=== PATIENT | male | born 1950 | race Caucasian/White ===

== ENCOUNTER 2021-08-20 15:26 | Inpatient (IN) ==
[2021-08-20] MEDS ORDERED: ONDANSETRON INJ 2 MG/ML 2 ML VIAL IV STA ×2 (16:03→18:16)
[2021-08-20] MEDS ORDERED: SODIUM CHLORIDE 0.9% 1000ML 1,000 ML IV STA (16:03)
--- NOTE | 2021-08-20 16:05 | Emergency Department Note ---
Impression & Plan GBM (glioblastoma multiforme) ADMIT ED Provider Note HPI: The patient is a 70-year-old gentleman with recent diagnosis of glioblastoma multiforme, presents the emergency department with a chief complaint of generalized weakness, nausea, and diarrhea. Patient's at the bedside serves as the primary historian, she states that he seemed in his normal state of health last night when they went to bed. She states when she woke up she found him on the couch. Patient states he does not remember why he was on the couch. He was incontinent of stool and urine this morning. Also complained of nausea. On arrival here to the ED the patient is alert, he is not oriented to place or time which is happened intermittently over the past several weeks according to his . He appears in mild distress secondary to nausea and generalized weakness. He also did have an episode of vomiting this morning. He did recently have a biopsy of his brain tumor at [facility] in [place], this was performed on 08/10/21. He was originally diagnosed with GBM last month after he was having issues with his memory as well as ataxia. This was diagnosed as an outpatient on MRI imaging and he was sent to [facility] for further care. They were informed during this visit that the tumor is nonoperative. They will be pursuing radiation therapy and have an appointment early this week with hematology/oncology locally. Patient is otherwise hemodynamically stable and alert on arrival here to the ED. He saturating well on room air. ROS: -GI: Nausea and vomiting, incontinent of stool -Neuro: Confusion beyond baseline with history of brain tumor/GBM *10 point review systems was conducted and is otherwise negative unless stated above *Outpatient medications and allergy history reviewed PE: General: Alert to verbal stimuli, mild distress secondary to nausea HEENT: Normocephalic, atraumatic Eyes: Extraocular eye movement is intact, no scleral erythema Pulmonary: Clear to auscultation bilaterally, no wheezing Cardio: Regular rate and rhythm GI: Abdomen is soft, nontender : No suprapubic tenderness MSK: No evidence of trauma or malformation of the extremities, no edema Skin: No evidence of rash Neuro: Alert, no focal deficits, patient is not oriented to time or place Psychiatric: Cooperative monitor technician: - An order was placed for continuous cardiac monitoring - Patient was noted to be in sinus rhythm with rate of 57 EKG: Rate: 55 Rhythm: Sinus bradycardia Intervals: IN interval 204 ms, otherwise within normal limits ST changes: No ST elevation Time: 1609 Medical Decision Making: Patient presented to the emergency department with some altered mentation beyond his baseline, he has had some nausea and vomiting, this is all in the setting of a recently diagnosed glioblastoma multiforme that is determined to be nonoperative following a stay at tertiary care center [facility] about 2 weeks ago. On arrival here to the ED the patient is hemodynamically stable, mild distress secondary to symptoms. IV was established, lab work ordered, patient was given Zofran and IV fluids in the ED for his symptoms. CT imaging of the head shows evidence of large brain mass that appears similar in size to previous CT imaging on 08/10. CT imaging of the abdomen pelvis does not show any evidence of any acute surgical abnormalities. Mildly elevated bilirubin and gallstones on CT imaging therefore I did obtain ultrasound of the right upper quadrant that does not show any evidence of cholecystitis. Lipase is also within normal limits. I discussed the above findings in regards to CT imaging of the head with on-call neurosurgery at [facility] in [place], Dr. Montgomery, who did review CT images of the head and states that at this time there do not appear to be any significant changes from CT imaging on 08/10. He does confirm that the brain mass is considered nonoperable. He states at this time there would be no further neurosurgical care indicated at [facility] and the patient can be managed either at this facility or if he is symptomatically improved enough can go home and follow-up as an outpatient. I discussed these findings with the patient's at the bedside, at this time the patient is still symptomatic, he is still fairly weak, I do believe that the patient's would have difficulty managing his symptoms at home. I discussed this with her and plan will be made for inpatient admission for symptomatic relief and possibly inpatient hospice consultation if indicated. I also discussed CODE STATUS of the patient with his at the bedside, he will be DNR/DNI if his condition decompensates. Case was discussed with the on-call hospitalist for the [facility] hospitalist team, Dr. Diaz, patient will be admitted for further care. CODE STATUS: DNR/DNI, discussed with at the bedside Diagnosis: 1. Brain mass, glioblastoma multiforme 2. Nausea and vomiting 3. Altered mental status Disposition: Admission Ward MattstacieDO Emergency Medicine Past Med/Surg History Social History Smoking Status: Never smoker Feels Safe at Home: Yes Allergies Allergies Allergy/AdvReac Type Severity Reaction Status Date / Time No Known Allergies Allergy Mild Verified 08/20/21 17:19 Home Meds Home Medications Medication Instructions Recorded Confirmed No Known Home Medications 08/20/21 08/20/21 Results & Data (ED) Vital Signs Vital Signs - 24 hr 08/20/21 15:28 08/20/21 15:29 08/20/21 16:03 Temperature 37 C Temperature Source Oral Pulse Rate 54 L 54 L Pulse Rate [Apical] 56 L Pulse Rhythm [Apical] Regular Pulse Strength [Apical] Normal Respiratory Rate 16 18 23 Blood Pressure 167/102 H Blood Pressure [Left Arm] 159/87 H Blood Pressure Mean 123 Blood Pressure Mean [Left Arm] 111 Pulse Oximetry 97 97 95 Oxygen Delivery Method Room Air Room Air Room Air Sepsis Recent Fever Within 48 Hours No Sepsis New/Unexplained Change in Mental Status No Sepsis Action Taken by Nursing No Action Required 08/20/21 17:28 Temperature Temperature Source Pulse Rate Pulse Rate [Apical] 55 L Pulse Rhythm [Apical] Pulse Strength [Apical] Respiratory Rate 18 Blood Pressure Blood Pressure [Left Arm] 126/82 Blood Pressure Mean Blood Pressure Mean [Left Arm] 96 Pulse Oximetry 96 Oxygen Delivery Method Room Air Sepsis Recent Fever Within 48 Hours Sepsis New/Unexplained Change in Mental Status Sepsis Action Taken by Nursing Laboratory Data Result diagrams: 08/20/21 15:50 08/20/21 15:50 Lab Results 08/20/21 08/20/21 08/20/21 Range/Units 15:50 15:50 15:50 WBC 13.18 H (4.8-10.8) K/uL RBC 5.29 (4.7-6.1) M/uL Hgb 17.2 (14.0-18.0) g/dL Hct 47.6 (42-52) % MCV 90.0 (80-100) fL MCH 32.5 (25-34) pg MCHC 36.1 H (32-36) g/dL RDW Std Deviation 41.9 (36.4-46.3) fL RDW Coeff of Cullen 12.8 (11.5-14.5) % Plt Count 103 L (130-400) K/uL MPV 10.6 H (7.4-10.4) fL Immature Gran % (Auto) 0.6 % Neut % (Auto) 80.2 % Lymph % (Auto) 10.1 % [place] % (Auto) 8.8 % Eos % (Auto) 0.2 % Baso % (Auto) 0.1 % Neut # (Auto) 10.58 H (1.4-6.5) K/uL Lymph # (Auto) 1.33 (1.2-3.4) K/uL [place] # (Auto) 1.16 H (0.11-0.59) K/uL Eos # (Auto) 0.02 (0-0.5) K/uL Baso # (Auto) 0.01 (0-0.2) K/uL Immature Gran # (Auto) 0.08 H (0.00-0.02) K/uL PT 10.2 (9.0-12.0) Seconds INR 1.0 (0.9-1.1) APTT 22.4 (21.0-31.0) Seconds PTT Ratio 0.9 Sodium 129 L (136-145) mmol/L Potassium 4.2 (3.5-5.1) mmol/L Chloride 94 L (98-107) mmol/L Carbon Dioxide 28 (21-32) mmol/L Anion Gap 7 (3-11) BUN 20 (6-23) mg/dl Creatinine 0.76 (0.6-1.4) mg/dl Est Cr Clr Drug Dosing Not Reportable Est GFR ( Amer) 107.9 ml/min Est GFR (Non-Af Amer) 93.1 ml/min BUN/Creatinine Ratio 26.3 H (10-20) Glucose 124 H (70-99) mg/dl Calcium 8.5 (8.5-10.1) mg/dl Total Bilirubin 2.1 H (0.2-1.0) mg/dl AST 14 (13-39) U/L ALT 16 (7-52) U/L Alkaline Phosphatase 54 (34-104) U/L Troponin I < 0.03 (0-0.04) ng/ml Total Protein 6.2 (6.0-8.3) gm/dl Albumin 3.8 (3.4-5.0) gm/dl Globulin 2.4 L (2.5-4.0) gm/dl Albumin/Globulin Ratio 1.6 (0.9-2) Lipase 19 (11-82) U/L Administered Medications Discontinued Medications Dexamethasone (Dexamethasone Sod Inj 4 Mg/Ml Vial) 8 mg IV ONE ONE Stop: 08/20/21 18:16 Last Admin: 08/20/21 18:11 Dose: 8 mg Documented by: [id number] Sodium Chloride (Nss 1000ml) 1,000 mls @ 999 mls/hr IV .Q1H1M STA Stop: 08/20/21 17:03 Last Infusion: 08/20/21 17:57 Dose: 0 mls/hr Documented by: [id number] Admin: 08/20/21 16:33 Dose: 999 mls/hr Documented by: [id number] Ioversol (Optiray 320 100ml) 95 ml IV ONCE ONE Stop: 08/20/21 17:00 Last Admin: 08/20/21 16:59 Dose: 95 ml Documented by: [id number] Ondansetron HCl (Ondansetron Inj 2 Mg/Ml 2 Ml Vial) 4 mg IV NOW STA Stop: 08/20/21 16:04 Last Admin: 08/20/21 16:33 Dose: 4 mg Documented by: [id number] Ondansetron HCl (Ondansetron Inj 2 Mg/Ml 2 Ml Vial) 4 mg IV NOW STA Stop: 08/20/21 18:17 Last Admin: 08/20/21 18:17 Dose: 4 mg Documented by: [id number] Ondansetron HCl (Ondansetron Inj 2 Mg/Ml 2 Ml Vial) Confirm Administered Dose 4 mg .ROUTE .STK-MED ONE Stop: 08/20/21 18:18 Last Admin: 08/20/21 18:33 Dose: Not Given Documented by: [id number] Imaging Data Radiologist's Impression: Chest X-Ray 08/20/21 16:03 XR chest 1V portable CLINICAL HISTORY: Chest Pain. COMPARISON STUDY: No previous studies for comparison. TECHNIQUE: 1 view of the chest FINDINGS: Single frontal view of the chest demonstrates the cardiomediastinal silhouette to be within normal limits. There is mild asymmetric elevation of the right hemidiaphragm with right basilar atelectasis. The lungs are otherwise clear of alveolar opacities. There is no evidence for pleural effusion. There is no evidence for vascular congestion. There is no acute osseous pathology. IMPRESSION: Mild right basilar atelectasis. ACT 112: Negative or not required by law. Electronically signed by: Fredy Kenney M.D. 08/20/2021 4:[address] 08/20/21 16:03 CT head/brain wo con CLINICAL HISTORY: AMS, N/V, recent dx of glioblastoma multiform a COMPARISON STUDY: Outside CT of the brain from 08/10/2021 CT DOSE: 749.40 mGy.cm TECHNIQUE: Standard CT of the Brain was performed without IV contrast. A dose lowering technique was utilized adhering to the principles of ALARA. FINDINGS: Compared to the outside CT examination, there is again a large mass present involving the central aspect of the brain encroaching upon the lateral ventricles bilaterally it measures approximately 5.1 x 4.7 cm. Surrounding cerebral edema is seen as well. The findings are not significantly changed. Extraaxial space: There is no evidence for subdural hematoma. There are no extra-axial fluid collections. Ventricles and cisterns: The anterior horns of lateral ventricles are intact. The third and fourth ventricles appear normal. There is no evidence for midline shift or mass effect. Parenchyma: There is no subarachnoid or intraparenchymal hemorrhage. There is no evidence for an acute infarct or cerebral edema. There is homogeneous attenuation of the brain parenchyma. Osseous structures: There is no evidence for an acute fracture. The visualized paranasal sinuses are clear. The mastoid air cells are clear bilaterally. Soft tissues: There is no evidence for focal soft tissue swelling. IMPRESSION: Compared to the previous examination, a large central mass is again seen within the brain compressive the posterior horns of the lateral ventricles bilaterally. The patient has a history of glioblastoma multiform in the findings are essentially unchanged. ACT 112: Negative or not required by law. Electronically signed by: Fredy eKnney M.D. 08/20/2021 4:50 PM Abdomen/Pelvis CT 08/20/21 16:45 CT abd pelvis IV con only CLINICAL HISTORY: N/V, history of pancreatitis COMPARISON STUDY: 11/20/2006 CT DOSE: 497.40 mGy.cm TECHNIQUE: Standard CT of the Abdomen and Pelvis was performed with IV contrast. A dose lowering technique was utilized adhering to the principles of ALARA. Contrast Volume: Optiray 320, 95 ml. The patient did not receive oral contrast. FINDINGS: Lung base: The lung bases are clear. There is asymmetric pleural thickening at the right lung base posteriorly which is unchanged. Abdominal cavity: There is no evidence for abdominal mass, adenopathy or ascites. Liver: There is homogeneous attenuation of the liver parenchyma. There is no evidence for enhancing mass lesion. Spleen: There is homogeneous attenuation of the splenic parenchyma. There is no enhancing mass lesion. Pancreas: There is homogeneous attenuation of the pancreatic parenchyma. There is no evidence for mass lesion or peripancreatic fluid collection. Gall Bladder: The gallbladder is distended with cholelithiasis. There is no CT evidence for acute cholecystitis. Adrenal glands: The adrenal glands are normal in size and attenuation. There is no evidence for enhancing mass lesion. Kidneys: There is homogeneous attenuation of the renal parenchyma bilaterally. There is no evidence for renal calculus or hydronephrosis. There is no evidence for enhancing mass. Bowel: There is a small to moderate size hiatal hernia with mucosal thickening. Fluid-filled loops of small bowel are seen within the abdomen and pelvis without evidence for disproportionate dilatation or obstruction. The findings are characteristic of an ileus versus gastroenteritis. There is mild fecal impaction and fecal stasis rectosigmoid colon. There is no evidence for obstruction. There are no inflammatory changes present. There is no evidence for free air. There is no evidence for an inflamed appendix. Bladder: The bladder is within normal limits with no evidence for focal mass, calculus or diverticulum. : There is no evidence for pelvic mass or adenopathy. There is no evidence for pelvic ascites. The prostate is mildly enlarged. Vasculature: There is no evidence for aneurysmal dilatation of the abdominal aorta. Osseous structures: There is no acute osseous pathology. Degenerative changes are seen involving the lumbar spine and SI joints. IMPRESSION: 1. Fluid-filled loops of small bowel throughout the abdomen and pelvis was characteristic of an ileus versus gastroenteritis. No evidence for obstruction. 2. Mild fecal impaction and fecal stasis the rectosigmoid colon without evidence for obstruction. 3. Cholelithiasis with no CT evidence for acute cholecystitis. 4. Small to moderate size hiatal hernia. 5. Additional nonacute findings are delineated above. ACT 112: Negative or not required by law. Electronically signed by: Fredy Kenney M.D. 08/20/2021 5:22 PM Gallbladder Ultrasound 08/20/21 17:54 US gallbladder CLINICAL HISTORY: N/V. Cholelithiasis on CT COMPARISON: CT of the abdomen and pelvis 08/20/2021 TECHNIQUE: Multiple grayscale and color images of the right upper quadrant of the abdomen. FINDINGS: The study is limited by overlying bowel gas. Pancreas: The pancreas cannot be visualized by ultrasound. It was within normal limits and CT. Liver: The liver is homogeneous in echogenicity There is no evidence for a focal mass. There is no intrahepatic biliary duct dilatation. Gallbladder: As seen on CT, the gallbladder is well distended with cholelithiasis. There is no evidence for wall thickening or pericholecystic fluid. There was reported to be a negative sonographic Wang sign. Common Bile Duct: (CBD): It is normal in size measuring 3 mm Inferior Vena Cava (IVC): The imaged IVC is patent. Right kidney: There is no evidence for hydronephrosis, calculus or gross renal mass. The kidney is normal in size. . It measures 11.4 cm in greatest length. IMPRESSION: Ultrasound confirms the presence of cholelithiasis with no ultrasound evidence for acute cholecystitis. Nonvisualization of the pancreas due to overlying bowel gas. ACT 112: Negative or not required by law. Electronically signed by: Fredy Kenney M.D. 08/20/2021 6:56 PM Discharge Plan Visit Data Chief Complaint: Altered Mental Status Stated Complaint: VOMITTING, LOOSE STOOL, SYNCOPE ED Provider: Ward Koch Discharge Problem: GBM (glioblastoma multiforme) Forms Stand Alone Forms: Anagear Prescriptions Prescriptions: No Action No Known Home Medications RF: 0 Referrals Referrals: Vance Girard DO [Primary Care Provider] -
[2021-08-20 16:09] LABS: Basophils # (auto) 0.01 K/uL (0-0.2); Basophils % (auto) 0.1 %; Eosinophils # (auto) 0.02 K/uL (0-0.5); Eosinophils % (auto) 0.2 %; Hematocrit (blood only) 47.6 % (42-52); Hemoglobin 17.2 g/dL (14.0-18.0); Immature Granulocytes # (auto) 0.08 K/uL (0.00-0.02); Immature Granulocytes % (auto) 0.6 %; Lymphocytes # (auto) 1.33 K/uL (1.2-3.4); Lymphocytes % (auto) 10.1 %; Mean Corpuscular Hemoglobin 32.5 pg (25-34); Mean Corpuscular Hgb Conc 36.1 g/dL (32-36); Mean Platelet Volume 10.6 fL (7.4-10.4); Monocytes # (auto) 1.16 K/uL (0.11-0.59); Monocytes % (auto) 8.8 %; Neutrophils # (auto) 10.58 K/uL (1.4-6.5); Neutrophils % (auto) 80.2 %; Platelet Count 103 K/uL (130-400); RDW Coefficient of Variation 12.8 % (11.5-14.5); RDW Standard Deviation 41.9 fL (36.4-46.3); Red Blood Count 5.29 M/uL (4.7-6.1); White Blood Count 13.18 K/uL (4.8-10.8)
[2021-08-20 16:19] LABS: Partial Thromboplastin Ratio 0.9; Partial Thromboplastin Time 22.4 Seconds (21.0-31.0); Prothrombin Time 10.2 Seconds (9.0-12.0)
[2021-08-20 16:35] LABS: Troponin I < 0.03 ng/ml (0-0.04)
[2021-08-20 16:36] LABS: Alanine Aminotransferase 16 U/L (7-52); Albumin Globulin Ratio 1.6 (0.9-2); Albumin Level 3.8 gm/dl (3.4-5.0); Alkaline Phosphatase 54 U/L (34-104); Anion Gap 7 (3-11); Aspartate Aminotransferase 14 U/L (13-39); BUN Creatinine Ratio 26.3 (10-20); Bilirubin,Total 2.1 mg/dl (0.2-1.0); Blood Urea Nitrogen 20 mg/dl (6-23); Calcium 8.5 mg/dl (8.5-10.1); Carbon Dioxide 28 mmol/L (21-32); Chloride 94 mmol/L (98-107); Est GFR (African American) 107.9 ml/min; Est GFR (Non-African American) 93.1 ml/min; Globulin 2.4 gm/dl (2.5-4.0); Glucose 124 mg/dl (70-99); Lipase 19 U/L (11-82); Potassium 4.2 mmol/L (3.5-5.1); Sodium 129 mmol/L (136-145); Total Protein 6.2 gm/dl (6.0-8.3)
--- NOTE | 2021-08-20 16:51 | CT Scan Report ---
CT head/brain wo con CLINICAL HISTORY: AMS, N/V, recent dx of glioblastoma multiform a COMPARISON STUDY: Outside CT of the brain from 08/10/2021 CT DOSE: 749.40 mGy.cm TECHNIQUE: Standard CT of the Brain was performed without IV contrast. A dose lowering technique was utilized adhering to the principles of ALARA. FINDINGS: Compared to the outside CT examination, there is again a large mass present involving the c entral aspect of the brain encroaching upon the lateral ventricles bilaterally it measures approximat mark 5.1 x 4.7 cm. Surrounding cerebral edema is seen as well. The findings are not significantly kelley ged. Extraaxial space: There is no evidence for subdural hematoma. There are no extra-axial fluid collecti ons. Ventricles and cisterns: The anterior horns of lateral ventricles are intact. The third and fourth v entricles appear normal. There is no evidence for midline shift or mass effect. Parenchyma: There is no subarachnoid or intraparenchymal hemorrhage. There is no evidence for an acu te infarct or cerebral edema. There is homogeneous attenuation of the brain parenchyma. Osseous structures: There is no evidence for an acute fracture. The visualized paranasal sinuses are clear. The mastoid air cells are clear bilaterally. Soft tissues: There is no evidence for focal soft tissue swelling. IMPRESSION: Compared to the previous examination, a large central mass is again seen within the brain compressive the posterior horns of the lateral ventricles bilaterally. The patient has a history of glioblastoma multiform in the findings are essentially unchanged. ACT 112: Negative or not required by law. Electronically signed by: Fredy Kenney M.D. 08/20/2021 4:50 PM
--- NOTE | 2021-08-20 16:52 | XRay Report ---
XR chest 1V portable CLINICAL HISTORY: Chest Pain. COMPARISON STUDY: No previous studies for comparison. TECHNIQUE: 1 view of the chest FINDINGS: Single frontal view of the chest demonstrates the cardiomediastinal silhouette to be within normal li mits. There is mild asymmetric elevation of the right hemidiaphragm with right basilar atelectasis. T he lungs are otherwise clear of alveolar opacities. There is no evidence for pleural effusion. There is no evidence for vascular congestion. There is no acute osseous pathology. IMPRESSION: Mild right basilar atelectasis. ACT 112: Negative or not required by law. Electronically signed by: Fredy Kenney M.D. 08/20/2021 4:51 PM
[2021-08-20] MEDS ORDERED: OPTIRAY 320 100ml IV ONE (16:59)
--- NOTE | 2021-08-20 17:23 | CT Scan Report ---
CT abd pelvis IV con only CLINICAL HISTORY: N/V, history of pancreatitis COMPARISON STUDY: 11/20/2006 CT DOSE: 497.40 mGy.cm TECHNIQUE: Standard CT of the Abdomen and Pelvis was performed with IV contrast. A dose lowering juan hnique was utilized adhering to the principles of ALARA. Contrast Volume: Optiray 320, 95 ml. The patient did not receive oral contrast. FINDINGS: Lung base: The lung bases are clear. There is asymmetric pleural thickening at the right lung base po steriorly which is unchanged. Abdominal cavity: There is no evidence for abdominal mass, adenopathy or ascites. Liver: There is homogeneous attenuation of the liver parenchyma. There is no evidence for enhancing m ass lesion. Spleen: There is homogeneous attenuation of the splenic parenchyma. There is no enhancing mass lesion . Pancreas: There is homogeneous attenuation of the pancreatic parenchyma. There is no evidence for mas s lesion or peripancreatic fluid collection. Gall Bladder: The gallbladder is distended with cholelithiasis. There is no CT evidence for acute cho lecystitis. Adrenal glands: The adrenal glands are normal in size and attenuation. There is no evidence for enhan cing mass lesion. Kidneys: There is homogeneous attenuation of the renal parenchyma bilaterally. There is no evidence f or renal calculus or hydronephrosis. There is no evidence for enhancing mass. Bowel: There is a small to moderate size hiatal hernia with mucosal thickening. Fluid-filled loops of small bowel are seen within the abdomen and pelvis without evidence for disproportionate dilatation or obstruction. The findings are characteristic of an ileus versus gastroenteritis. There is mild fecal impaction and fecal stasis rectosigmoid colon. There is no evidence for obstructi on. There are no inflammatory changes present. There is no evidence for free air. There is no evidenc e for an inflamed appendix. Bladder: The bladder is within normal limits with no evidence for focal mass, calculus or diverticulu m. : There is no evidence for pelvic mass or adenopathy. There is no evidence for pelvic ascites. The prostate is mildly enlarged. Vasculature: There is no evidence for aneurysmal dilatation of the abdominal aorta. Osseous structures: There is no acute osseous pathology. Degenerative changes are seen involving the lumbar spine and SI joints. IMPRESSION: 1. Fluid-filled loops of small bowel throughout the abdomen and pelvis was characteristic of an ileus versus gastroenteritis. No evidence for obstruction. 2. Mild fecal impaction and fecal stasis the rectosigmoid colon without evidence for obstruction. 3. Cholelithiasis with no CT evidence for acute cholecystitis. 4. Small to moderate size hiatal hernia. 5. Additional nonacute findings are delineated above. ACT 112: Negative or not required by law. Electronically signed by: Fredy Kenney M.D. 08/20/2021 5:22 PM
[2021-08-20] MEDS ORDERED: dexAMETHasone 8 MG in SYRINGE 0 ML IV ONE (17:58)
[2021-08-20] MEDS ORDERED: DEXAMETHASONE SOD INJ 4 MG/ML VIAL IV ONE (18:15)
[2021-08-20] MEDS ORDERED: ONDANSETRON INJ 2 MG/ML 2 ML VIAL ONE (18:17)
--- NOTE | 2021-08-20 18:57 | Ultrasound Report ---
US gallbladder CLINICAL HISTORY: N/V. Cholelithiasis on CT COMPARISON: CT of the abdomen and pelvis 08/20/2021 TECHNIQUE: Multiple grayscale and color images of the right upper quadrant of the abdomen. FINDINGS: The study is limited by overlying bowel gas. Pancreas: The pancreas cannot be visualized by ultrasound. It was within normal limits and CT. Liver: The liver is homogeneous in echogenicity There is no evidence for a focal mass. There is no in trahepatic biliary duct dilatation. Gallbladder: As seen on CT, the gallbladder is well distended with cholelithiasis. There is no evide nce for wall thickening or pericholecystic fluid. There was reported to be a negative sonographic Mur phy sign. Common Bile Duct: (CBD): It is normal in size measuring 3 mm Inferior Vena Cava (IVC): The imaged IVC is patent. Right kidney: There is no evidence for hydronephrosis, calculus or gross renal mass. The kidney is n ormal in size. . It measures 11.4 cm in greatest length. IMPRESSION: Ultrasound confirms the presence of cholelithiasis with no ultrasound evidence for acute cholecystitis. Nonvisualization of the pancreas due to overlying bowel gas. ACT 112: Negative or not required by law. Electronically signed by: Fredy Kenney M.D. 08/20/2021 6:56 PM
[2021-08-20 20:12] LABS: Influenza A virus by PCR Negative (Neg); Influenza B virus by PCR Negative (Neg); RSV by PCR Negative (Neg); SARS CoV2 RNA(COVID-19) InHosp NEGATIVE (Negative)
--- NOTE | 2021-08-20 20:33 | History & Physical Report ---
Date of Service August 20, 2021 Assessment & Plan (1) Encephalopathy: Plan: With incontinence symptoms Possible new onset seizures hx glioblastoma multiforme Pancreatic head fullness on CT from last [facility] confinement Steroid-induced hyperglycemia rule out DM past tobacco/alcohol abuse Medical telemetry Resume Keppra for seizure prophylaxis Seizure precautions, Ativan as needed active seizures Baseline EEG Neurology consult Re: Possible new onset seizures Continue Decadron as per [facility] neurosurgeon on-call recommendations (Dr. Montgomery). Inpatient Radiation Oncology and Oncology consultations for GBM as per 's request. Outpatient MRI contemplated for pancreatic abnormality Check hemoglobin A1c DVT prophylaxis. SCDs Re: Brain tumor DNR as per . [facility] neurosurgeon agreeable to plan of care. Patient's requesting updates from providers. Ms. Cayla Simpson, contact #[phone]. Text document was generated using [employer] recognition software. It may contain grammatical or spelling errors. Kindly contact undersigned for clarification of any documentation item in question. History of Present Illness Chief Complaint: Weakness, confusion, incontinence as per Primary Care Provider: Vance Girard DO History obtained from patient, family, and records. Limited history from patient secondary to short-term memory impairment. Medical history significant for glioblastoma multiforme, past tobacco/alcohol abuse, varicose veins as per records. Last [facility] confinement 2005 for alcoholic pancreatitis. Patient confined [facility] August 03 to 2020 abnormal brain MRI which showed moderate to large size heterogeneous enhancing mass in the area of the posterior corpus callosum with surrounding edema. Brain MRI prompted by 2 weeks of worsening short-term memory loss, concentration issues, gait imbalance, anhedonia and LE tremors when holding objects. No weakness seizures prior to confinement as per . Glioblastoma multiforme suspected as per discharge summary. Pancreatic head fullness noted on CT abdomen pelvis done during confinement as part of metastatic work-up. Outpatient pancreatic MRI, MRCP recommended. Patient discharged on Decadron and Keppra medications. Pepcid prescribed with Decadron. Patient underwent outpatient brain tumor biopsy by [facility] Neurosurgery last August 10, 2021. Pathology later came out as infiltrative glioblastoma. Keppra stopped after biopsy procedure as per patient . Patient seen by [facility] neurosurgeon on follow-up last week. Pathology discussed with patient/family. Patient Dexamethasone to be tapered off as per documentation. Chemoradiation contemplated pending recommendations by Oncology and Radiation oncology services as per note. [facility] neurooncologist recommended concurrent treatment with radiation and daily Temodar (75 mg/m2) for 6 weeks followed by 4-week break. Adjuvant Temodar for 6 months and Optune TTFields therapy. MRI scans to be done every 2 to 3 months. Treatment to be coordinated with [place] specialists as per patient request. Patient had scheduled local Oncology and Radiation Oncology outpatient consultations in [place] next week. Steroid taper completed a few days ago. Yesterday, patient noted to be tired, listless, off balance and falling backwards. Bowel and bladder incontinence noted by . No actual seizures witnessed although right hand tremors occasionally noted by . Patient denies headache, chest pain, S OB, fever, chills. Patient more forgetful as per . One episode of emesis today. Patient brought to the ER for evaluation. IV Decadron administered at the ER after discussion between ER provider and [facility] neurosurgeon on-call. Some improvement in mentation after steroid and IVF administration at the ER as per . Medical History as above Surgical History : Stereotactic brain biopsy Family History : Liver cancer, pancreatic cancer, DM Personal/Social history : Past tobacco/alcohol abuse, lives with Allergies Allergy/AdvReac Type Severity Reaction Status Date / Time No Known Allergies Allergy Mild Verified 08/20/21 17:19 Home Medications Medication Instructions Recorded Confirmed Type No Known Home Medications 08/20/21 08/20/21 History Past Med/Surg History Social History Smoking Status: Unknown if ever smoked Preferred Language: Solomon Islander Communication Ability: Effective Regional Administrative Assistant Required: No marital status: Current Living Situation: Spouse How many Children do You have: 0 Feels Safe at Home: Yes Safety Concerns: Feels Safe At This Time Assistive Devices: Cane and Walker Review of Systems Review of Systems: Could not be reliably obtained Physical Exam Physical Exam: GENERAL: uncomfortable, laconic, no respiratory distress SKIN: Normal color, warm HEENT: [place] palpebral conjunctivae, no ptosis, dry buccal mucosa NECK : Supple, no tenderness CHEST : Decreased breath sounds, no tenderness HEART : Bradycardic, no obvious murmurs ABDOMEN: Some distention, nontender EXTREMITIES : No LE swelling/tenderness, no other conspicuous deformities noted NEUROLOGIC : Coherent, no facial asymmetry, slow response to some questions, no other gross focality Results & Data Results & Data ([facility]) Vital Signs (Past 12 Hours) Vital Signs Temp Pulse Pulse Resp BP BP Pulse Ox 08/20/21 17:28 55 L 18 126/82 96 08/20/21 16:03 54 L 23 95 08/20/21 15:29 37 C 54 L 18 167/102 H 97 08/20/21 15:28 56 L 16 159/87 H 97 Laboratory Results Laboratory Results WBC 13.18 K/uL (4.8-10.8) H 08/20/21 15:50 RBC 5.29 M/uL (4.7-6.1) 08/20/21 15:50 Hgb 17.2 g/dL (14.0-18.0) 08/20/21 15:50 Hct 47.6 % (42-52) 08/20/21 15:50 MCV 90.0 fL (80-100) 08/20/21 15:50 MCH 32.5 pg (25-34) 08/20/21 15:50 MCHC 36.1 g/dL (32-36) H 08/20/21 15:50 RDW Std Deviation 41.9 fL (36.4-46.3) 08/20/21 15:50 RDW Coeff of Cullen 12.8 % (11.5-14.5) 08/20/21 15:50 Plt Count 103 K/uL (130-400) L 08/20/21 15:50 MPV 10.6 fL (7.4-10.4) H 08/20/21 15:50 Immature Gran % (Auto) 0.6 % 08/20/21 15:50 Neut % (Auto) 80.2 % 08/20/21 15:50 Lymph % (Auto) 10.1 % 08/20/21 15:50 [place] % (Auto) 8.8 % 08/20/21 15:50 Eos % (Auto) 0.2 % 08/20/21 15:50 Baso % (Auto) 0.1 % 08/20/21 15:50 Neut # (Auto) 10.58 K/uL (1.4-6.5) H 08/20/21 15:50 Lymph # (Auto) 1.33 K/uL (1.2-3.4) 08/20/21 15:50 Wythe # (Auto) 1.16 K/uL (0.11-0.59) H 08/20/21 15:50 Eos # (Auto) 0.02 K/uL (0-0.5) 08/20/21 15:50 Baso # (Auto) 0.01 K/uL (0-0.2) 08/20/21 15:50 Immature Gran # (Auto) 0.08 K/uL (0.00-0.02) H 08/20/21 15:50 PT 10.2 Seconds (9.0-12.0) 08/20/21 15:50 INR 1.0 (0.9-1.1) 08/20/21 15:50 APTT 22.4 Seconds (21.0-31.0) 08/20/21 15:50 PTT Ratio 0.9 08/20/21 15:50 Sodium 129 mmol/L (136-145) L 08/20/21 15:50 Potassium 4.2 mmol/L (3.5-5.1) 08/20/21 15:50 Chloride 94 mmol/L (98-107) L 08/20/21 15:50 Carbon Dioxide 28 mmol/L (21-32) 08/20/21 15:50 Anion Gap 7 (3-11) 08/20/21 15:50 BUN 20 mg/dl (6-23) 08/20/21 15:50 Creatinine 0.76 mg/dl (0.6-1.4) 08/20/21 15:50 Est Cr Clr Drug Dosing Not Reportable 08/20/21 15:50 Est GFR ( Amer) 107.9 ml/min 08/20/21 15:50 Est GFR (Non-Af Amer) 93.1 ml/min 08/20/21 15:50 BUN/Creatinine Ratio 26.3 (10-20) H 08/20/21 15:50 Glucose 124 mg/dl (70-99) H 08/20/21 15:50 Calcium 8.5 mg/dl (8.5-10.1) 08/20/21 15:50 Magnesium 1.9 mg/dl (1.7-2.4) 08/20/21 15:50 Total Bilirubin 2.1 mg/dl (0.2-1.0) H 08/20/21 15:50 AST 14 U/L (13-39) 08/20/21 15:50 ALT 16 U/L (7-52) 08/20/21 15:50 Alkaline Phosphatase 54 U/L (34-104) 08/20/21 15:50 Troponin I < 0.03 ng/ml (0-0.04) 08/20/21 15:50 Total Protein 6.2 gm/dl (6.0-8.3) 08/20/21 15:50 Albumin 3.8 gm/dl (3.4-5.0) 08/20/21 15:50 Globulin 2.4 gm/dl (2.5-4.0) L 08/20/21 15:50 Albumin/Globulin Ratio 1.6 (0.9-2) 08/20/21 15:50 Lipase 19 U/L (11-82) 08/20/21 15:50 TSH 2.331 uIu/ml (0.300-4.500) 08/20/21 15:50 SARS-CoV-2 (PCR) NEGATIVE (Negative) 08/20/21 19:27 Influenza Type A (PCR) Negative (Neg) 08/20/21 19:27 Influenza Type B (PCR) Negative (Neg) 08/20/21 19:27 RSV (RT-PCR) Negative (Neg) 08/20/21 19:27 Impressions Chest X-Ray 08/20/21 16:03 XR chest 1V portable CLINICAL HISTORY: Chest Pain. COMPARISON STUDY: No previous studies for comparison. TECHNIQUE: 1 view of the chest FINDINGS: Single frontal view of the chest demonstrates the cardiomediastinal silhouette to be within normal limits. There is mild asymmetric elevation of the right hemidiaphragm with right basilar atelectasis. The lungs are otherwise clear of alveolar opacities. There is no evidence for pleural effusion. There is no evidence for vascular congestion. There is no acute osseous pathology. IMPRESSION: Mild right basilar atelectasis. ACT 112: Negative or not required by law. Electronically signed by: Fredy Kenney M.D. 08/20/2021 4:[address] 08/20/21 16:03 CT head/brain wo con CLINICAL HISTORY: AMS, N/V, recent dx of glioblastoma multiform a COMPARISON STUDY: Outside CT of the brain from 08/10/2021 CT DOSE: 749.40 mGy.cm TECHNIQUE: Standard CT of the Brain was performed without IV contrast. A dose lowering technique was utilized adhering to the principles of ALARA. FINDINGS: Compared to the outside CT examination, there is again a large mass present involving the central aspect of the brain encroaching upon the lateral ventricles bilaterally it measures approximately 5.1 x 4.7 cm. Surrounding cerebral edema is seen as well. The findings are not significantly changed. Extraaxial space: There is no evidence for subdural hematoma. There are no extra-axial fluid collections. Ventricles and cisterns: The anterior horns of lateral ventricles are intact. The third and fourth ventricles appear normal. There is no evidence for midline shift or mass effect. Parenchyma: There is no subarachnoid or intraparenchymal hemorrhage. There is no evidence for an acute infarct or cerebral edema. There is homogeneous attenuation of the brain parenchyma. Osseous structures: There is no evidence for an acute fracture. The visualized paranasal sinuses are clear. The mastoid air cells are clear bilaterally. Soft tissues: There is no evidence for focal soft tissue swelling. IMPRESSION: Compared to the previous examination, a large central mass is again seen within the brain compressive the posterior horns of the lateral ventricles bilaterally. The patient has a history of glioblastoma multiform in the findings are essentially unchanged. ACT 112: Negative or not required by law. Electronically signed by: Fredy Kenney M.D. 08/20/2021 4:50 PM Abdomen/Pelvis CT 08/20/21 16:45 CT abd pelvis IV con only CLINICAL HISTORY: N/V, history of pancreatitis COMPARISON STUDY: 11/20/2006 CT DOSE: 497.40 mGy.cm TECHNIQUE: Standard CT of the Abdomen and Pelvis was performed with IV contrast. A dose lowering technique was utilized adhering to the principles of ALARA. Contrast Volume: Optiray 320, 95 ml. The patient did not receive oral contrast. FINDINGS: Lung base: The lung bases are clear. There is asymmetric pleural thickening at the right lung base posteriorly which is unchanged. Abdominal cavity: There is no evidence for abdominal mass, adenopathy or ascites. Liver: There is homogeneous attenuation of the liver parenchyma. There is no evidence for enhancing mass lesion. Spleen: There is homogeneous attenuation of the splenic parenchyma. There is no enhancing mass lesion. Pancreas: There is homogeneous attenuation of the pancreatic parenchyma. There is no evidence for mass lesion or peripancreatic fluid collection. Gall Bladder: The gallbladder is distended with cholelithiasis. There is no CT evidence for acute cholecystitis. Adrenal glands: The adrenal glands are normal in size and attenuation. There is no evidence for enhancing mass lesion. Kidneys: There is homogeneous attenuation of the renal parenchyma bilaterally. There is no evidence for renal calculus or hydronephrosis. There is no evidence for enhancing mass. Bowel: There is a small to moderate size hiatal hernia with mucosal thickening. Fluid-filled loops of small bowel are seen within the abdomen and pelvis without evidence for disproportionate dilatation or obstruction. The findings are characteristic of an ileus versus gastroenteritis. There is mild fecal impaction and fecal stasis rectosigmoid colon. There is no evidence for obstruction. There are no inflammatory changes present. There is no evidence for free air. There is no evidence for an inflamed appendix. Bladder: The bladder is within normal limits with no evidence for focal mass, calculus or diverticulum. : There is no evidence for pelvic mass or adenopathy. There is no evidence for pelvic ascites. The prostate is mildly enlarged. Vasculature: There is no evidence for aneurysmal dilatation of the abdominal aorta. Osseous structures: There is no acute osseous pathology. Degenerative changes are seen involving the lumbar spine and SI joints. IMPRESSION: 1. Fluid-filled loops of small bowel throughout the abdomen and pelvis was characteristic of an ileus versus gastroenteritis. No evidence for obstruction. 2. Mild fecal impaction and fecal stasis the rectosigmoid colon without evidence for obstruction. 3. Cholelithiasis with no CT evidence for acute cholecystitis. 4. Small to moderate size hiatal hernia. 5. Additional nonacute findings are delineated above. ACT 112: Negative or not required by law. Electronically signed by: Fredy Kenney M.D. 08/20/2021 5:22 PM Gallbladder Ultrasound 08/20/21 17:54 US gallbladder CLINICAL HISTORY: N/V. Cholelithiasis on CT COMPARISON: CT of the abdomen and pelvis 08/20/2021 TECHNIQUE: Multiple grayscale and color images of the right upper quadrant of the abdomen. FINDINGS: The study is limited by overlying bowel gas. Pancreas: The pancreas cannot be visualized by ultrasound. It was within normal limits and CT. Liver: The liver is homogeneous in echogenicity There is no evidence for a focal mass. There is no intrahepatic biliary duct dilatation. Gallbladder: As seen on CT, the gallbladder is well distended with cholelithiasis. There is no evidence for wall thickening or pericholecystic fluid. There was reported to be a negative sonographic Wang sign. Common Bile Duct: (CBD): It is normal in size measuring 3 mm Inferior Vena Cava (IVC): The imaged IVC is patent. Right kidney: There is no evidence for hydronephrosis, calculus or gross renal mass. The kidney is normal in size. . It measures 11.4 cm in greatest length. IMPRESSION: Ultrasound confirms the presence of cholelithiasis with no ultrasound evidence for acute cholecystitis. Nonvisualization of the pancreas due to overlying bowel gas. ACT 112: Negative or not required by law. Electronically signed by: Fredy Kenney M.D. 08/20/2021 6:56 PM Diagnostic Findings EKG as per my interpretation : Rate 55, sinus bradycardia, normal axis, no isch emia
[2021-08-20] MEDS ORDERED: LORazepam 1 MG/2 ML VIAL IV PRN (21:07)
[2021-08-20] MEDS ORDERED: levETIRAcetam 1,000 MG in 0.9 % SODIUM CHLORIDE 100 ML IV ONE (21:15)
[2021-08-20] MEDS ORDERED: ACETAMINOPHEN 325 MG TAB PO PRN (22:24)
[2021-08-20] MEDS ORDERED: PROMETHAZINE HCL 12.5 MG in SODIUM CHLORIDE 0.9% 50 ML IV PRN (22:24)
[2021-08-20] MEDS ORDERED: SODIUM CHLORIDE 0.9% 1000ML 1,000 ML IV ONE (22:24)
[2021-08-21] MEDS: dexAMETHasone 4 MG in SYRINGE 0 ML IV SCH ×4 (00:05→17:38)
[2021-08-21 03:18] LABS: Appearance Urine Clear (Clear); Bilirubin Urine Negative (Negative); Blood Urine Negative (Negative); Color Urine Yellow; Glucose Urine UA Trace (Negative); Ketones Urine 1+ (Negative); Leukocyte Esterase Urine Negative (Negative); Nitrite Urine Negative (Negative); Protein Urine Negative (Negative); Specific Gravity Urine 1.011 (1.000-1.030); Urobilinogen Urine Negative (Negative); pH Urine 6.5 (4.5-7.5)
[2021-08-21 07:08] LABS: Estimated Average Glucose 120 mg/dl; Hemoglobin A1C 5.8 % (4.5-5.6)
[2021-08-21] MEDS: levETIRAcetam 500 MG TAB PO SCH ×2 (08:41→21:35)
[2021-08-21] MEDS: FAMOTIDINE 20 MG TAB PO SCH ×2 (08:41→21:35)
--- NOTE | 2021-08-21 08:44 | Electrocardiogram Report ---
Test Reason : Blood Pressure : / mmHG Vent. Rate : 055 BPM Atrial Rate : 055 BPM P-R Int : 204 ms QRS Dur : 104 ms QT Int : 426 ms P-R-T Axes : 043 014 032 degrees QTc Int : 407 ms Poor data quality, interpretation may be adversely affected Sinus bradycardia Otherwise normal ECG No previous ECGs available Confirmed by Serg Ruff ([id number]) on 08/21/2021 8:44:19 AM Referred By: REFERRED SELF Confirmed By:Serg Ruff
[2021-08-21 09:00] LABS: Hematocrit (blood only) 47.3 % (42-52); Hemoglobin 16.8 g/dL (14.0-18.0); Immature Granulocytes # (auto) 0.04 K/uL (0.00-0.02); Immature Granulocytes % (auto) 0.4 %; Lymphocytes # (auto) 0.57 K/uL (1.2-3.4); Lymphocytes % (auto) 6.2 %; Mean Corpuscular Hemoglobin 32.1 pg (25-34); Mean Corpuscular Hgb Conc 35.5 g/dL (32-36); Mean Corpuscular Volume 90.3 fL (80-100); Mean Platelet Volume 10.7 fL (7.4-10.4); Monocytes % (auto) 2.2 %; Neutrophils # (auto) 8.44 K/uL (1.4-6.5); Neutrophils % (auto) 91.2 %; Platelet Count 132 K/uL (130-400); RDW Coefficient of Variation 12.9 % (11.5-14.5); RDW Standard Deviation 42.4 fL (36.4-46.3); Red Blood Count 5.24 M/uL (4.7-6.1); White Blood Count 9.25 K/uL (4.8-10.8)
[2021-08-21] MEDS ORDERED: PNEUMOCOCCAL POLYSACCHARIDES 25 MCG/0.5 ML VIAL/SYR IM ONE (09:00)
[2021-08-21] MEDS ORDERED: INFLUENZA VACCINE HIGH DOSE PF 65+ 0.7 ML SYR IM ONE (09:00)
[2021-08-21 09:28] LABS: BUN Creatinine Ratio 23.2 (10-20); Calcium 8.5 mg/dl (8.5-10.1); Creatinine Clr Calc Pharmacy 107.6 ml/min; Est GFR (African American) 112.3 ml/min; Est GFR (Non-African American) 96.9 ml/min
--- NOTE | 2021-08-21 12:13 | Radiation OncologyConsultation ---
Date of Consultation August 21, 2021 Assessment & Plan (1) GBM (glioblastoma multiforme): Assessment: Mr. Simpson is a 70-year-old gentleman who presents with a new diagnosis of glioblastoma status post biopsy only. The patient was evaluated at the brain tumor multidisciplinary clinic at [facility] on 08/14/2021. The patient was seen by Dr. Hays from medical oncology who recommended concurrent radiation therapy with temozolomide followed by adjuvant temozolomide. The patient was scheduled to be seen in the outpatient setting for radiation oncology however he was admitted to the hospital is now being seen in the inpatient setting. Recommendation: Concurrent radiation therapy with chemotherapy. Plan: 1. CT simulation for treatment planning for radiation therapy. IV contrast. Patient's consented to treatment due to patient's short term memory issues. 2. Coordinate radiation therapy with chemotherapy. 3. Continue all other management as per primary medical team including dexamethasone. 4. Patient and family encouraged to call us with any further questions or concerns. Rationale/Explanation of Treatment: I explained the indications, alternatives, benefits, risks and side effects of external beam radiation therapy. I explain the most common side effects including but not limited to skin erythema, skin break down, hair loss, radiation necrosis, fatigue, short-term memory loss, decreased neurocognitive performance, cerebral edema, hearing loss, damage to cochlea structures, seizures, loss of sensory and or motor function. I explained the treatment planning process and what to expect before during and after treatment. The patient and had multiple questions which were answered to their full satisfaction. Thank you for allowing us to participate in the care of this patient. This chart was completed in part utilizing [employer] Voice Recognition software. Attempts were made to minimize the grammatical errors, random word insertions, pronoun errors and incomplete sentences. Any formal questions or concerns about the content, text or information contained within the body of this dictation should be directly addressed to the provider for clarification. Trinity Ramos MD Department of Radiation Oncology [facility] History of Present Illness Attending Physician: Vonnie Harper DO History of Present Illness 07/2021. Patient presents with worsening short-term memory loss, gait imbalance, anhedonia, and LUE tremor. 08/03/2021. MRI Brain. IMPRESSION: 1. Large heterogeneously enhancing partially necrotic lesion centered in the posterior body/splenium of corpus callosum bilaterally as described above is suggestive of glioblastoma multiforme. Differential diagnosis includes lymphoma which is less likely given the necrosis. The tumor extends into each medial parietal lobe left greater than right. Prompt neurosurgery consultation is recommended. 2. Possible subependymal spread of tumor in the left atrium. 3. A separate 5 mm focus of enhancement in the left cingulate gyrus adjacent to the falx may represent another focus of GBM. 4. Nonenhancing patchy T2/FLAIR hyperintensity in the left frontal lobe is nonspecific and may represent nonenhancing tumor, chronic microvascular changes or a combination. 08/04/2021. CT Chest/Abdomen/Pelvis. IMPRESSION: 1. There is fullness in the head of the pancreas with atrophy of the body and tail. There is no pancreatic ductal dilatation. A mass is not excluded and an MRI of the pancreas with and without contrast and MRCP is recommended for further evaluation. 2. There is mild prominence of the central intrahepatic ducts. The common bile duct is normal in caliber. 3. Cholelithiasis. 4. No suspicious pulmonary nodules or masses are identified in the chest. 5. There is mild right pleural thickening with calcifications. This may be a chronic finding. 6. Tiny nonobstructing stone in the lower pole of the left kidney. 08/10/2021. Biopsy of corpus callosum by Dr. Quevedo at [facility]. Glioblastoma, WHO Grade 4. 08/14/2021. Brain Tumor [facility] at [facility]. Recommendation is for radiation therapy with temozolomide followed by temozolomide with TTF. 08/20/2021. Patient is admitted to hospital. Presents to ED with generalized weakness, nausea, diarrhea. 08/20/2021. CT Head. IMPRESSION: Compared to the previous examination, a large central mass is again seen within the brain compressive the posterior horns of the lateral ventricles bilaterally. The patient has a history of glioblastoma multiform in the findings are essentially unchanged. 08/20/2021. CT Abdo/Pelvis. IMPRESSION: 1. Fluid-filled loops of small bowel throughout the abdomen and pelvis was characteristic of an ileus versus gastroenteritis. No evidence for obstruction. 2. Mild fecal impaction and fecal stasis the rectosigmoid colon without evidence for obstruction. 3. Cholelithiasis with no CT evidence for acute cholecystitis. 4. Small to moderate size hiatal hernia. 5. Additional nonacute findings are delineated above. Allergies Allergy/AdvReac Type Severity Reaction Status Date / Time No Known Allergies Allergy Mild Verified 08/20/21 17:19 Home Medications Medication Instructions Recorded Confirmed Type No Known Home Medications 08/20/21 08/20/21 History Patient History Social History Smoking Status: Unknown if ever smoked Preferred Language: Chinese Communication Ability: Effective Day Haul Youth Supervisor Required: No marital status: Current Living Situation: Spouse How many Children do You have: 0 Feels Safe at Home: Yes Safety Concerns: Feels Safe At This Time Assistive Devices: Cane and Walker Review of Systems Review of Systems: Bladder, bowel incontinence. Some confusion. Tremors. Physical Exam Constitutional: WD/WN, vitals as above Psychiatric: A+Ox3, euthymic affect
--- NOTE | 2021-08-21 13:00 | Neurology Consultation ---
Date of Consultation August 21, 2021 Assessment & Plan (1) GBM (glioblastoma multiforme): 1. keppra 500 mg q 12 hours has been restarted 2. decadron IV 4 mg q 6 hours for now- oncology for recommendations switch to oral 3. PT/OT for discharge needs 4. radiation oncology and medical oncology for treatment planning 5. follow with neurooncology already scheduled. will see in our office if needed. will be available for questions concerns. Supervising Physician Co-Signing Physician Notes I have seen and discussed above patient with Dr Charity Beasley, neurology. Patient seen and examined history and images reviewed. The patient has a massive midline mass which is biopsy-proven to be a GBM yesterday no seizure activity was noted but he was incontinent multiple times confused and is markedly improved today on Decadron and Keppra there is no prior history of seizure. Today the patient is feeling well he does not have any headaches new weakness or numbness. Patient's indicates that his personality is at its baseline always a although he is a little more talkative than he is usually on exam pupils are postsurgical optic nerves appear to show no papilledema there is normal gamble motility. There is full strength there may be a minor right drift equal rapid alternating movements lower extremity strength is full feet are high arched. No pathologic reflexes are noted and toes are downgoing impression likely unwitnessed seizure secondary to massive GBM agree with reinstitution of steroids as well as Keppra. I would recommend Keppra 500mg twice daily with a level in 7 days and optimization to make the level therapeutic. Further evaluation and treatment up to the oncology and radiation oncology team. I do not believe the patient needs to see us in follow-up provided the seizures are well controlled however we are available if needed. We will sign off History of Present Illness Reason for Consultation: new onset seizure Requesting Physician: Vonnie Harper DO Attending Physician: Vonnie Harper DO History of Present Illness Fredy is a 70 year old gentleman with recent diagnosis of GBM who presented to [facility] ED 08/20/21 complaint of generalized weakness, nausea, and diarrhea.He seemed in his normal state of health last night when they went to bed.His woke and found him on the couch. He does not remember why he was on the couch and was incontinent of stool and urine this morning and nausea. He appears in mild distress secondary to nausea and generalized weakness. He also did have an episode of vomiting this morning. He had a brain biopsy on 08/10/21 at [facility] in [place]. He was originally diagnosed with GBM last month after he was having issues with his memory as well as ataxia. This was diagnosed as an outpatient on MRI imaging and he was sent to [facility] for further care. They were informed during this visit that the tumor is nonoperative. They will be pursuing radiation therapy and have an appointment early this week with hematology/oncology locally. Dr Ramos radiology is mapping for radiation therapy tomorrow. he is to start the radiation and the Temodar at the same time. did not see seizure activity but he was out of it for several hours after her finding him incontinent of bowel and bladder. denies CP, SOB, abdominal pain, one sided weakness, numbness tingling. 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 marital status: Current Living Situation: Spouse How many Children do You have: 0 Feels Safe at Home: Yes Safety Concerns: Feels Safe At This Time Assistive Devices: Cane and Walker Review of Systems Review of Systems: All systems reviewed & are unremarkable except as noted in HPI & below Physical Exam Physical Exam: Physical Exam: Constitutional: appearance nourished Ears, Nose, Mouth and Throat: mucous membranes moist, no injection and skin normal, eyes normal Cardiovascular: normal S-1 and S-2 and regular rate and rhythm Respiratory: course breath sounds Musculoskeletal: no peripheral edema and good distal pulses Skin: no stigmata of neurocutaneous disease noted and normal and intact, multiple varicose veins in LE Eyes: extraocular muscles intact (EOMI) and pupils equal, round and reactive to light (PERRL) NEUROLOGIC EXAMINATION: Mental status: Alert and interactive Oriented to full date and location Oriented to person Speech fluent with no evidence of aphasia Cranial Nerves facial symmetry Sensory: light cool touch Coordination: finger to nose Gait/Stance: Posture normal. sitting up bedside Strength: hand online community manager biceps triceps 5/5 bilaterally, hip flex 5/5 bilaterally Results & Data ([facility]) Vital Signs (Past 12 Hours) Vital Signs Temp Pulse Pulse Resp BP Pulse Ox 08/21/21 11:04 36.8 C 52 L 18 111/74 96 08/21/21 07:16 53 L 08/21/21 07:05 36.6 C 53 L 18 106/70 94 08/21/21 02:54 36.8 C 52 L 18 135/84 96 Laboratory Results Abnormal lab results 08/20/21 08/20/21 08/20/21 Range/Units 15:50 15:50 16:03 WBC 13.18 H (4.8-10.8) K/uL MCHC 36.1 H (32-36) g/dL Plt Count 103 L (130-400) K/uL MPV 10.6 H (7.4-10.4) fL Neut # (Auto) 10.58 H (1.4-6.5) K/uL Lymph # (Auto) (1.2-3.4) K/uL Ponce # (Auto) 1.16 H (0.11-0.59) K/uL Immature Gran # (Auto) 0.08 H (0.00-0.02) K/uL Sodium 129 L (136-145) mmol/L Chloride 94 L (98-107) mmol/L BUN/Creatinine Ratio 26.3 H (10-20) Glucose 124 H (70-99) mg/dl Hemoglobin A1c 5.8 H (4.5-5.6) % Total Bilirubin 2.1 H (0.2-1.0) mg/dl Globulin 2.4 L (2.5-4.0) gm/dl Urine Glucose (UA) (Negative) Urine Ketones (Negative) 08/21/21 08/21/21 08/21/21 Range/Units 03:05 08:26 08:26 WBC (4.8-10.8) K/uL MCHC (32-36) g/dL Plt Count (130-400) K/uL MPV 10.7 H (7.4-10.4) fL Neut # (Auto) 8.44 H (1.4-6.5) K/uL Lymph # (Auto) 0.57 L (1.2-3.4) K/uL Ponce # (Auto) (0.11-0.59) K/uL Immature Gran # (Auto) 0.04 H (0.00-0.02) K/uL Sodium 130 L (136-145) mmol/L Chloride (98-107) mmol/L BUN/Creatinine Ratio 23.2 H (10-20) Glucose 138 H (70-99) mg/dl Hemoglobin A1c (4.5-5.6) % Total Bilirubin (0.2-1.0) mg/dl Globulin (2.5-4.0) gm/dl Urine Glucose (UA) Trace H (Negative) Urine Ketones 1+ H (Negative) Diagnostic Findings CXR-Mild right basilar atelectasis. CT head-Compared to the previous examination, a large central mass is again seen within the brain compressive the posterior horns of the lateral ventricles bilaterally. The patient has a history of glioblastoma multiform in the findings are essentially unchanged. CT ijodkfl-Iacne-yjzvrw loops of small bowel throughout the abdomen and pelvis was characteristic of an ileus versus gastroenteritis. No evidence for obstruction.. Mild fecal impaction and fecal stasis the rectosigmoid colon without evidence for obstruction. Cholelithiasis with no CT evidence for acute cholecystitis. Small to moderate size hiatal hernia. Additional nonacute findings are delineated above. US gallbladder-Ultrasound confirms the presence of cholelithiasis with no ultrasound evidence for acute cholecystitis. Nonvisualization of the pancreas due to overlying bowel gas.
--- NOTE | 2021-08-21 14:47 | Consultation Report ---
MEDICAL ONCOLOGY CONSULTATION REPORT DATE OF SERVICE: 08/21/2021 REASON FOR CONSULT: Glioblastoma. HISTORY OF PRESENT ILLNESS: Mr. Simpson is a very pleasant 70-year-old gentleman who was recently diagnosed with WHO grade IV glioblastoma and was admitted yesterday with complaints of altered mental status as well as urinary and fecal incontinence . In summary, he had initially presented to [facility] in 07/2021 with complaints of short-term memory loss and gait imbalance. Brain MRI obtained at that time had revealed a large size heterogeneously enhancing mass in the area of the posterior corpus callosum with surrounding edema. He subsequently underwent biopsy of the lesion on 08/10/2021, which revealed WHO grade IV glioblastoma with intact nuclear expression of ATRX, IDH1-R132H was negative, Ki-67 was 15% with MGMT and EGFR still pending. He was seen by Dr. Hays of neurooncology at the [facility] who recommended concurrent chemoradiation with Temodar for 6 weeks followed by a 4-week break and then adjuvant Temodar for 6 months with Optune device. Per patient's , daily Temodar had already been ordered by Dr. Hays. During my evaluation of patient today, his states that altered mental status developed after he was tapered off steroids. Symptoms have now resolved with reinitiation of steroids. He was also started on Keppra for seizure prophylaxis on admission. He denies headaches, dizziness, blurry vision, chest pain, shortness of breath, abdominal pain, diarrhea or constipation. He had an episode of nausea and vomiting yesterday. PAST MEDICAL HISTORY: Pancreatitis about 16 years ago. PAST SURGICAL HISTORY: Stereotactic brain biopsy. MEDICATIONS PRIOR TO ADMISSION: No known home medications. ALLERGIES: No known drug allergies. SOCIAL HISTORY: He endorses chewing tobacco occasionally. Denies alcohol or illicit drug use. FAMILY HISTORY: Noncontributory. REVIEW OF SYSTEMS: CONSTITUTIONAL: Negative for weight loss, night sweats or fever. EYES: Negative for change in vision. CARDIOVASCULAR: Negative for chest pain, palpitations, dizziness, or diaphoresis. RESPIRATORY: Negative for shortness of breath, hemoptysis or cough. GASTROINTESTINAL: Negative for diarrhea, hematemesis, melena. Positive for nausea and vomiting. GENITOURINARY: Positive for urinary incontinence. Denies hematuria or dysuria. NEUROLOGIC: Positive for generalized weakness. LYMPHATICS/HEMATOLOGIC: Negative for abnormal bleeding or bruising or palpable adenopathy. PHYSICAL EXAMINATION: CONSTITUTIONAL: Vitals are stable. EYES: Eyes were without conjunctival erythema or icterus. NECK: Negative for masses or palpable adenopathy. RESPIRATORY: Lung sounds were generally clear bilaterally. CARDIOVASCULAR: Heart with regular rate and rhythm without significant murmur, gallops, or rubs. GASTROINTESTINAL: No palpable hepatosplenomegaly. ABDOMEN: Soft and nontender with normal bowel sounds. EXTREMITIES: Negative for erythema or edema. Strength was equal bilaterally. NEUROLOGIC: Exam was negative for any focal findings. LABORATORIES: Essentially normal except for mild hyponatremia with sodium of 130. IMAGING: Chest x-ray on 08/20/2021, impression: Mild right basilar atelectasis. Head CT on 08/20/2021: Compared to previous exam, a large central mass is again seen within the brain compressing the posterior horns of the lateral ventricles bilaterally. CT abdomen and pelvis on 08/20/2021, impression: 1. Fluid-filled loops of small bowel throughout the abdomen and pelvis, with characteristics of an ileus versus gastroenteritis. 2. Mild fecal impaction and fecal stasis in the rectosigmoid colon without evidence of obstruction. 3. Cholelithiasis with no CT evidence of acute cholecystitis. 4. Small to moderate-sized hiatal hernia. Gallbladder ultrasound on 08/20/2021, impression: Ultrasound confirms presence of cholelithiasis with no ultrasound evidence for acute cholecystitis. IMPRESSION: 1. Glioblastoma 2. Altered mental status 3. Fecal/urinary incontinence 2/2 ?seizures or AMS A pleasant gentleman who was recently diagnosed with glioblastoma and presented with fecal/urinary incontinence after being tapered off steroids .Symptoms have resolved since dexamethosone 4mg q 6 hours was restarted. He has been seen by neurooncologist at [facility] who recommended concurrent chemoradiation with daily Temodar for 6 weeks followed by adjuvant Temodar for 6 months for 6 cycles. Per patient's , Temodar has already been ordered by his neuro-oncologist. PLAN: -Agree with restarting dexamethasone 4mg q 6h -Agree with radiation oncology evaluation for concurrent chemoRT -Will see the patient upon discharge from hospital for monitoring while on Temodar. He will continue following up with his neuro-oncologist at [facility]. Thank you for this consult. Oncology will sign off to follow the patient upon discharge from hospital. Please feel free to call if you have any further questions. Job ID: [id number] MIGUELINA
--- NOTE | 2021-08-21 15:55 | Electroencephalogram ---
EEG Procedure Note Date of Service August 21, 2021 Start / End Times Start Time: 12:40 End Time: 13:[address] John Paul Cano History A 70 year old male with GBM and new onset seizure. EEG performed for evaluaton of epleptiform activity. Home Medication List Medication Instructions Recorded Confirmed Type No Known Home Medications 08/20/21 08/20/21 History Inpatient Medication List Famotidine (Famotidine 20 Mg Tab) 20 mg PO BID ARABELLA Stop: 09/20/21 08:59 Last Admin: 08/21/21 08:41 Dose: 20 mg Documented by: [id number] Dexamethasone 4 mg/ Syringe 1 mls @ 1 mls/min IV Q6H ARABELLA Stop: 09/20/21 00:00 Last Admin: 08/21/21 12:26 Dose: 1 mls/min Documented by: [id number] Admin: 08/21/21 05:52 Dose: 1 mls/min Documented by: [id number] Admin: 08/21/21 00:05 Dose: 1 mls/min Documented by: [id number] Sodium Chloride (Nss 1000ml) 1,000 mls @ 40 mls/hr IV .Q24H ONE Stop: 08/21/21 22:23 Last Admin: 08/21/21 00:05 Dose: 40 mls/hr Documented by: [id number] Levetiracetam (Levetiracetam 500 Mg Tab) 500 mg PO BID ARABELLA Stop: 09/20/21 08:59 Last Admin: 08/21/21 08:41 Dose: 500 mg Documented by: [id number] Discontinued Medications Dexamethasone (Dexamethasone Sod Inj 4 Mg/Ml Vial) 8 mg IV ONE ONE Stop: 08/20/21 18:16 Last Admin: 08/20/21 18:11 Dose: 8 mg Documented by: [id number] Sodium Chloride (Nss 1000ml) 1,000 mls @ 999 mls/hr IV .Q1H1M STA Stop: 08/20/21 17:03 Last Infusion: 08/20/21 17:57 Dose: 0 mls/hr Documented by: [id number] Admin: 08/20/21 16:33 Dose: 999 mls/hr Documented by: [id number] Levetiracetam 1,000 mg/ Sodium (Chloride) 110 mls @ 440 mls/hr IV TODAY@2114 ONE Stop: 08/20/21 21:29 Last Infusion: 08/20/21 22:26 Dose: 0 mls/hr Documented by: [id number] Admin: 08/20/21 21:26 Dose: 440 mls/hr Documented by: [id number] Ioversol (Optiray 320 100ml) 95 ml IV ONCE ONE Stop: 08/20/21 17:00 Last Admin: 08/20/21 16:59 Dose: 95 ml Documented by: [id number] Ondansetron HCl (Ondansetron Inj 2 Mg/Ml 2 Ml Vial) 4 mg IV NOW STA Stop: 08/20/21 16:04 Last Admin: 08/20/21 16:33 Dose: 4 mg Documented by: [id number] Ondansetron HCl (Ondansetron Inj 2 Mg/Ml 2 Ml Vial) 4 mg IV NOW STA Stop: 08/20/21 18:17 Last Admin: 08/20/21 18:17 Dose: 4 mg Documented by: [id number] Ondansetron HCl (Ondansetron Inj 2 Mg/Ml 2 Ml Vial) Confirm Administered Dose 4 mg .ROUTE .[employer] ONE Stop: 08/20/21 18:18 Last Admin: 08/20/21 18:33 Dose: Not Given Documented by: [id number] Description This is a 21 electrode EEG with a single channel dedicated to limited EKG. The electrodes were placed in accordance with the International 10-20 system. REPORT: At the onset of the EEG the patient is awake. The background is symmetric with a normal anterior to posterior gradient. The posterior dominant rhythm is 9Hz. Drowsiness is characterized by increased theta activity and decreased blink rate and myogenic artifact. No stage II sleep transients are seen. Photic stimulation does not induce any abnormalities. Interpretation IMPRESSION: This is a normal awake and drowsy routine EEG. No epileptiform dischargess are seen.
--- NOTE | 2021-08-21 19:15 | Hospitalist Progress Note ---
Date of Service August 21, 2021 Assessment & Plan (1) Encephalopathy: Plan: With incontinence symptoms Possible new onset seizures hx glioblastoma multiforme Cont Keppra per neuro and decadron for brain mass Notably patient had just weaned off his prior course of decadron prior to this episode. He is set up with Dr. Hays in oncology to start an oral chemotherapy drug which has been ordered. He is also set to start XRT to brain with Dr. Eliza Ramos in rad onc. PT/OT ordered for discharge needs assessment. (2) GBM (glioblastoma multiforme): Plan: plan as above. (3) DVT prophylaxis: Plan: SCDs/ambulation, chemoprophy contraindicated. Full Code Dispo-pending PT/OT recommendations and clinical improvement. Possibly to home in 1-2 days. Vonnie Harper DO [facility] Hospitalist Admission and Anticipated Discharge Date Admission Date: August 20, 2021 Subjective 70 yo M with recently diagnosed GBM in brain presents after episode of weakness and confusion as well as incontinence of stool and urine at home. at bedside, reports that he is stronger and improved today Walks with no assistive device at baseline but has been using a cane to help get himself upright. feels steady on his feet Denies headache or visual changes Denies pain, difficulty swallowing, loss of sensation, has no issues with reading reports other than short term memory loss there have been no focal deficits Recent brain biopsy with site well healing. Review of Systems Review of Systems: All systems were reviewed and negative except as indicated above. Physical Exam Physical Exam: CONSTITUTIONAL: WNWD, vitals as above, generally well- appearing, NAD EYES: EOMI bilaterally, PERRL, normal conjunctivae, ENT: external ear and nose normal, oropharynx clear, MMM NECK: trachea midline RESPIRATORY: clear to auscultation bilaterally, no crackles, rales or wheezes, normal respiratory effort CARDIOVASCULAR: regular rate and rhythm, S1 and 2 heard without murmurs, gallops or rubs, no JVD, no peripheral edema GASTROINTESTINAL: soft, nontender, ND, no guarding MUSCULOSKELETAL: strength 5/5 throughout, head is normocephalic and atraumatic aside from biopsy site on right side which is closed and well healing. SKIN: warm and dry, NEUROLOGIC: No facial palsy, no dysarthria. Touch, pain and proprioception normal. CN 2-12 grossly intact, no sensory deficit, normal cognition, normal speech, no tremor PSYCHIATRIC: alert cooperative and oriented to person, place and time. Euthymic mood, makes good eye contact, language grossly intact, recent and remote memory grossly intact. Results & Data Results & Data ([facility]) Vital Signs (Past 12 Hours) Vital Signs Temp Pulse Pulse Resp BP Pulse Ox 08/21/21 15:54 36.7 C 50 L 18 138/83 95 08/21/21 15:07 50 L 08/21/21 11:04 36.8 C 52 L 18 111/74 96 08/21/21 07:16 53 L Laboratory Results Short CBC 08/21/21 Range/Units 08:26 WBC 9.25 (4.8-10.8) K/uL Hgb 16.8 (14.0-18.0) g/dL Hct 47.3 (42-52) % Plt Count 132 (130-400) K/uL BMP 08/21/21 08/21/21 08:26 09:04 Sodium 130 L Potassium 4.3 Chloride 98 Carbon Dioxide 26 BUN 16 Creatinine 0.69 Glucose 138 H Calcium 8.5 Urine 08/21/21 Range/Units 03:05 Urine Color Yellow Urine Appearance Clear (Clear) Urine pH 6.5 (4.5-7.5) Ur Specific Booker 1.011 (1.000-1.030) Urine Protein Negative (Negative) Urine Glucose (UA) Trace H (Negative) Medications Administered Current Inpatient Medications Acetaminophen (Acetaminophen 325 Mg Tab) 650 mg PO Q4H PRN PRN Reason: Pain or Fever Stop: 09/19/21 22:23 Famotidine (Famotidine 20 Mg Tab) 20 mg PO BID [facility] Stop: 09/20/21 08:59 Last Admin: 08/21/21 08:41 Dose: 20 mg Documented by: Lorazepam (Ativan) 1 mg in 2 mls @ 0.5 mls/min IV Q10M PRN PRN Reason: seizures Stop: 09/19/21 21:06 Promethazine HCl 12.5 mg/ (Sodium Chloride) 50.5 mls @ 202 mls/hr IV Q6H PRN PRN Reason: Nausea And Vomiting Stop: 09/19/21 22:23 Dexamethasone 4 mg/ Syringe 1 mls @ 1 mls/min IV Q6H ARABELLA Stop: 09/20/21 00:00 Last Admin: 08/21/21 17:38 Dose: 1 mls/min Documented by: Sodium Chloride (Nss 1000ml) 1,000 mls @ 40 mls/hr IV .Q24H ONE Stop: 08/21/21 22:23 Last Admin: 08/21/21 00:05 Dose: 40 mls/hr Documented by: Levetiracetam (Levetiracetam 500 Mg Tab) 500 mg PO BID [facility] Stop: 09/20/21 08:59 Last Admin: 08/21/21 08:41 Dose: 500 mg Documented by:
[2021-08-22] MEDS: dexAMETHasone 4 MG in SYRINGE 0 ML IV SCH ×3 (01:08→12:15)
[2021-08-22 06:37] LABS: Hematocrit (blood only) 45.1 % (42-52); Mean Corpuscular Hemoglobin 31.7 pg (25-34); Mean Corpuscular Hgb Conc 35.5 g/dL (32-36); Mean Corpuscular Volume 89.3 fL (80-100); Mean Platelet Volume 10.5 fL (7.4-10.4); Platelet Count 130 K/uL (130-400); RDW Standard Deviation 41.8 fL (36.4-46.3); Red Blood Count 5.05 M/uL (4.7-6.1); White Blood Count 12.93 K/uL (4.8-10.8)
[2021-08-22 07:07] LABS: BUN Creatinine Ratio 22.9 (10-20); Calcium 8.4 mg/dl (8.5-10.1); Creatinine Clr Calc Pharmacy 89.5 ml/min; Est GFR (African American) 104.1 ml/min; Est GFR (Non-African American) 89.8 ml/min; Potassium 4.3 mmol/L (3.5-5.1)
[2021-08-22] MEDS: levETIRAcetam 500 MG TAB PO SCH (08:16)
[2021-08-22] MEDS: FAMOTIDINE 20 MG TAB PO SCH (10:36)
[2021-08-22 15:57] VITALS: BP 143/87; PULSE 50; TEMP 98.1; O2SAT 95
--- NOTE | 2021-08-22 16:07 | Discharge Summary ---
Date of Service August 22, 2021 Admission HPI Per Admitting Provider History obtained from patient, family, and records. Limited history from patient secondary to short-term memory impairment. Medical history significant for glioblastoma multiforme, past tobacco/alcohol abuse, varicose veins as per records. Last [facility] confinement 2005 for alcoholic pancreatitis. Patient confined [facility] August 03 to 2020 abnormal brain MRI which showed moderate to large size heterogeneous enhancing mass in the area of the posterior corpus callosum with surrounding edema. Brain MRI prompted by 2 weeks of worsening short-term memory loss, concentration issues, gait imbalance, anhedonia and LE tremors when holding objects. No weakness seizures prior to confinement as per . Glioblastoma multiforme suspected as per discharge summary. Pancreatic head fullness noted on CT abdomen pelvis done during confinement as part of metastatic work-up. Outpatient pancreatic MRI, MRCP recommended. Patient discharged on Decadron and Keppra medications. Pepcid prescribed with Decadron. Patient [place] [facility] [place]. Pathology later came out as infiltrative glioblastoma. Keppra stopped after biopsy procedure as per patient . [place] [facility] [place] follow[place]up last week. Pathology discussed with patient/family. Patient Dexamethasone to be tapered off as per documentation. Chemoradiation contemplated pending recommendations by Oncology and Radiation oncology services as per note. [facility] [place] recommended concurrent treatment with radiation and daily Temodar (75 mg/m2) for 6 weeks followed by 4-week break. Adjuvant Temodar for 6 months and Optune TTFields therapy. MRI scans to be done every 2 to 3 months. Treatment to be coordinated with [place] specialists as per patient request. Patient had scheduled local Oncology and Radiation Oncology outpatient consultations in [place] next week. Steroid taper completed a few days ago. Yesterday, patient noted to be tired, listless, off balance and falling backwards. Bowel and bladder incontinence noted by . No actual seizures witnessed although right hand tremors occasionally noted by . Patient denies headache, chest pain, S OB, fever, chills. Patient more forgetful as per . One episode of emesis today. Patient brought to the ER for evaluation. IV Decadron administered at the ER after discussion between ER provider and [facility] [place]. Some improvement in mentation after steroid and IVF administration at the ER as per . Medical History as above Surgical History : Stereotactic brain biopsy Family History : Liver cancer, pancreatic cancer, DM Personal/Social history : Past tobacco/alcohol abuse, lives with Admission Exam Per Admitting Provider GENERAL: uncomfortable, laconic, no respiratory distress SKIN: Normal color, warm HEENT: [place] palpebral conjunctivae, no ptosis, dry buccal mucosa NECK : Supple, no tenderness CHEST : Decreased breath sounds, no tenderness HEART : Bradycardic, no obvious murmurs ABDOMEN: Some distention, nontender EXTREMITIES : No LE swelling/tenderness, no other conspicuous deformities noted NEUROLOGIC : Coherent, no facial asymmetry, slow response to some questions, no other gross focality Principal Diagnosis Acute metabolic encephalopathy GBM Discharge Exam CONSTITUTIONAL: WNWD, vitals as above, generally well-appearing, NAD EYES: EOMI bilaterally, PERRL, normal conjunctivae, ENT: external ear and nose normal, oropharynx clear, MMM NECK: trachea midline RESPIRATORY: clear to auscultation bilaterally, no crackles, rales or wheezes, normal respiratory effort CARDIOVASCULAR: regular rate and rhythm, S1 and 2 heard without murmurs, gallops or rubs, no JVD, no peripheral edema GASTROINTESTINAL: soft, nontender, ND, no guarding MUSCULOSKELETAL: strength 5/5 throughout, head is normocephalic and atraumatic aside from biopsy site on right side which is closed and well healing. SKIN: warm and dry, NEUROLOGIC: No facial palsy, no dysarthria. Touch, pain and proprioception normal. CN 2-12 grossly intact, no sensory deficit, normal cognition, normal speech, no tremor PSYCHIATRIC: alert cooperative and oriented to person, place and time. Euthymic mood, makes good eye contact, language grossly intact, recent and remote memory grossly intact. Discharge Data Allergies Allergy/AdvReac Type Severity Reaction Status Date / Time No Known Allergies Allergy Mild Verified 08/20/21 17:19 Consultations 08/20/21 19:41 ED Decision to Admit Stat 08/20/21 21:13 Consult Oncology Routine Consult Radiation Oncology Routine 08/20/21 22:24 Consult Neurology Routine Ordered Studies 08/20/21 16:03 CT head/brain wo con Stat 08/20/21 16:45 CT abd pelvis IV con only Stat 08/20/21 17:54 US gallbladder Stat 08/22/21 08:30 CT guide rad therapy head Routine Hospital Course (1) Encephalopathy: Acute encephalopathy with acute incontinence symptoms, found confused and lethargic per in bathroom. Possible new onset seizures with recent diagnosis of glioblastoma multiforme and just completed decadron taper 2-3 days prior to episode. Keppra started and neurology was consulted. Decadron was restarted at a frequency of every 6 hours. EEG revealed no epileptic focus He is set up with Dr. Hays in oncology to start an oral chemotherapy drug which has been ordered. He is also set to start XRT to brain with Dr. Eliza Ramos in rad onc. PT/OT ordered for discharge needs assessment and he was cleared for home Discharge in guarded condition based on diagnosis to continue with oral chemotherapy and XRT treatments. Wheelchair and rolling walker scripts provided at discharge. Close primary care followup was recommended after discharge. (2) GBM (glioblastoma multiforme): plan as above. Total Time Total Time Spent Total Time Spent (In Minutes): 60 Discharge Plan Discharge Items Patient Disposition: Home - Home Health Services Reason For Visit: ENCEPHALOPATHY, NEW ONSET SZ Discharge Diagnosis: Acute metabolic encephalopathy GBM Activity: Resume your previous activity Non-emergency contact: Primary Care Provider Call non-emergency contact if: you have any medication questions, your symptoms worsen, your pain is not controlled, your pain is worsening, your pain is unusual for you and your pain is concerning for you Follow-up/Referrals: Vance Girard DO [Primary Care Provider] - Diet: Regular Addtl Attending Provider Instructions: Please take all medications as instructed on discharge list below. You have been given prescriptions for a walker wtih wheels, a wheelchair and for home health services for physical therapy. Please continue all instructions and follow-up per Radiation Oncology (Dr. Ramos) and with your Oncologist at [facility]. It is recommended that you followup with your primary care physician within one week of discharge to ensure you are still doing well since going home and to update them on how you are tolerating your new medications. PCP can also facilitate referrals and is your main foundation provider who will be coordinating all your care. It was a pleasure taking care of you! Please call if you have any questions or problems. You can reach a [facility] hospitalist on duty at [facility] 24 hours a day by calling [phone]. Take care of yourself. Vonnie Harper DO [facility] Hospitalist Pending Studies at Discharge: No Stand-Alone Forms: My [facility] Medications and DC Order Prescriptions: New levetiracetam [Keppra] 500 mg Tablet 500 mg PO BID Qty: 60 RF: 0 dexamethasone [Decadron] 4 mg tablet 4 mg PO Q6H Qty: 56 RF: 1 Discharge Orders: Discharge Order (Routine); Ordered 08/22/21 Ordered By: Vonnie Harper Admission Data Admit Date/Time: 08/20/21 21:07 Attending Provider: Vonnie Harper Admit Provider: John Paul Cano Primary Care Provider: Vance Girard Other Providers: Augie Quevedo ; John Paul Cano ; Concha Winter Angelica M. ; Trinity Ramos ; Tien Suresh ; Charity Fitzgerald ; Ankit Joy ; Charity Beasley ; Quoc Petty ; [place] Other Interventions: Discharge Summary Assessment (RN) Last Done: 08/22/21 16:17
== END 2021-08-22 16:50 | disposition home health service (06) | DRG 54 ==
LOC: ED 15:26 → 2S 21:07
DX: G93.41 Metabolic encephalopathy; R73.9 Hyperglycemia, unspecified; F10.11 Alcohol abuse, in remission; R32 Unspecified urinary incontinence; R15.9 Full incontinence of feces; Z80.0 Family history of malignant neoplasm of digestive organs; R93.5 Abnormal findings on diagnostic imaging of other abdominal regions, including retroperitoneum; T38.0X5A Adverse effect of glucocorticoids and synthetic analogues, initial encounter; Z83.3 Family history of diabetes mellitus; Z66 Do not resuscitate; Z87.891 Personal history of nicotine dependence; C71.8 Malignant neoplasm of overlapping sites of brain; R56.9 Unspecified convulsions